=== PATIENT | female | born 1975 | race Caucasian/White ===

== ENCOUNTER → 2018-11-23 12:38 | Outpatient (CLI) | payer OTHER, SELFPAY ==
[2018-11-30 12:58] LABS: HPV APTIMA, High Risk Negative (Negative)
[2018-12-20 15:28] LABS: HPV Reflexed? NOT INDICATED
== END ==
PROVIDERS: Referring Provider Obstetrics & Gynecology; Visit Provider Obstetrics & Gynecology
DX: Z12.4 Encounter for screening for malignant neoplasm of cervix (principal)
CPT/HCPCS: 87624; 88175; G0145